=== PATIENT | female | born 1980 | race Caucasian/White ===

== ENCOUNTER 2018-04-04 13:30 | Outpatient (RCR) | payer OTHER, SELFPAY | END 2018-04-25 10:13 | disposition home or self-care (01) | LOC: PT 13:30 | PROVIDERS: Family Provider Obstetrics & Gynecology; PCP Obstetrics & Gynecology; Visit Provider Nurse Practitioner Family | DX: M54.16 Radiculopathy, lumbar region (principal) | CPT/HCPCS: 97033; 97035; 97110; 97163 ==

== ENCOUNTER → 2018-10-31 12:19 | Outpatient (CLI) | payer MEDICAID, SELFPAY ==
--- NOTE | 2018-10-31 12:36 | XR_ITS ---
EXAM: XR lumbar spine 2-3V HISTORY: ITS.REASON: LOW BACK PAIN WITH RADICULOPATHY ORDERING PHYSICIAN: Татьяна Villalba PATIENT AGE: 38 years COMPARISON: None FINDINGS: There is minimal lumbar curvature convex left. Normal alignment. No fracture or dislocation. No lytic or blastic change. No significant degenerative change. The disc spaces are preserved. IMPRESSION: No acute finding
== END ==
PROVIDERS: PCP Nurse Practitioner Family; Visit Provider Nurse Practitioner Family
DX: M54.5 Low back pain (principal); M54.16 Radiculopathy, lumbar region
CPT/HCPCS: 72100

== ENCOUNTER → 2019-02-22 12:58 | Outpatient (CLI) | payer MEDICAID, SELFPAY ==
--- NOTE | 2019-02-22 13:19 | XR_ITS ---
XR knee RT 4V HISTORY: ITS.REASON: RT KNEE PAIN, INURY ORDERING PHYSICIAN: Alize Aceves MD PATIENT AGE: 38 years COMPARISON: None FINDINGS: No fracture or dislocation. No lytic or blastic change. Normal mineralization. No significant arthritic changes evident. No other significant findings IMPRESSION: Negative Knee
== END ==
PROVIDERS: PCP Nurse Practitioner Family; Visit Provider Orthopaedic Surgery
DX: M25.561 Pain in right knee (principal)
CPT/HCPCS: 73564

== ENCOUNTER 2019-02-22 14:40 | Outpatient (RCR) | payer MEDICAID, SELFPAY | END 2019-02-22 14:45 | disposition home or self-care (01) | LOC: PT 14:40 | PROVIDERS: Visit Provider Orthopaedic Surgery | DX: M25.561 Pain in right knee (principal) | CPT/HCPCS: 97760 ==

== ENCOUNTER → 2019-03-20 14:16 | Outpatient (CLI) | payer MEDICAID, SELFPAY ==
--- NOTE | 2019-03-20 14:17 | MR_ITS ---
MR knee RT wo con HISTORY: Right knee pain, injury with pain medially ITS.REASON: knee pain ORDERING PHYSICIAN: Alize Aceves MD PATIENT AGE: 38 years Comparison: 02/17/2019 TECHNIQUE: Standard multiplanar multiecho sequences are performed without contrast. FINDINGS: The cruciate ligaments have an unremarkable appearance. There is increased T2 signal in both sides of the medial collateral ligament at its femoral insertion with thickening of the ligament at this level consistent with a grade 2 MCL sprain/partial tear. A complete tear is not felt to be present. The patellar tendon and quadriceps tendon are intact. Small knee joint effusion. No meniscal tear apparent. There is increased T2 signal involving the posterior aspect of the lateral femoral condyle and at the distal metaphyseal region posteriorly and laterally. This does not involve the articular surface and is consistent with a bone bruise. There is also increased T2 signal involving the posterior aspect of the proximal tibia laterally consistent with a bone bruise. No obvious fractures are evident. The patellar cartilage is well preserved. IMPRESSION: 1. Grade 2 MCL sprain/partial tear 2. Bone bruise of the lateral femoral condyle posteriorly and lateral aspect of the proximal tibia posteriorly 3. No evidence of meniscal tear or cruciate ligament tear
== END ==
PROVIDERS: PCP Nurse Practitioner Family; Visit Provider Orthopaedic Surgery
DX: S83.90XA Sprain of unspecified site of unspecified knee, initial encounter (principal)
CPT/HCPCS: 73721

== ENCOUNTER 2019-05-15 09:00 | Outpatient (RCR) | payer MEDICAID, SELFPAY ==
--- NOTE | 2019-03-04 17:20 | HMH.PTOPEV ---
PT Outpatient Evaluation Rehab PT Outpatient Evaluation Start: 03/04/19 16:33 Freq: Status: Active Protocol: Document 03/04/19 16:34 SILVIA (Rec: 03/04/19 17:19 PDESERDUANEX [id number]) Electronically Signed By Alverto Cardenas, PT 03/04/19 16:34 Outpatient Therapy Subjective History Subjective History Pt. is a 38 year old female who presents to outpatient PT for complaints of acute and traumatic R medial/anterior tibiafemoral pain since 02/17/19. Pt. reports falling off of a 4- fuller backwards onto black top and waking up with her RLE bent underneath her. Pt. denies having head pain and symptoms post fall, but reports bruising in BLEs and R knee pain. Recent diagnostic imaging(X-ray) negative for fracture nor bony abnormalities. Pt. reports Surgeon's orders for wearing a knee brace and using bilateral crutches. Pt. reports, I quit using my crutches because I was tired of them. Pt. RTMD 03/13/19. Current medications include Ibuprofen and Citalopram. PMH includes R arthroscopic knee surgery. Chief Complaint Pain,Swelling Symptom Type Sharp,Stabbing Symptoms Relieved By Rest/Positioning,Brace/Support ,OTC Meds Symptoms Aggravated By Standing,Bending/Stooping, Physical Activity,Twisting, Walking,Lifting Prior Functional Limitations None Current Functional Limitations Lifting,Housework,Dressing, Driving,Sleeping,Standing, Squatting,Recreation Activity, Walking,Stairs,Bending/ Stooping Symptom Description Activity Dependent Level of pain today (0-10) 0 Pain scale - at its best (0-10) 0 Pain scale - at its worst (0-10) 10 Hip/Knee Eval Gait Observation General Gait Pattern Observation Antalgic Gait,Wide Based Gait, Decrease Weight Bear (R), Decrease Stride Lngth (L) Assistive Device
== END 2019-05-22 15:19 | disposition home or self-care (01) ==
LOC: PT.CARL 09:00
PROVIDERS: Visit Provider Orthopaedic Surgery
DX: M25.561 Pain in right knee (principal)
CPT/HCPCS: 97010; 97014; 97110; 97116; 97140; 97163; 97164; G0283

== ENCOUNTER → 2020-09-29 08:58 | Outpatient (CLI) | payer MEDICAID, SELFPAY ==
--- NOTE | 2020-09-29 09:05 | MM_ITS ---
PROCEDURE: MM DIG SCREENING MAMM BI W/CAD Referring Doctor: Татьяна Villalba Patient Age:40Y CLINICAL INDICATION: SCREENING 40-year-old. Baseline mammogram. No previous for comparison. No new complaints. No hormones. Negative family history COMPARISON: No exams were available for comparison baseline study TECHNIQUE: Standard CC and MLO images were obtained. R2 CAD reviewed. Bilateral digital breast tomosynthesis included. Additional axillary CC view both breast included FINDINGS: Baseline study with no previous for comparison Areas of dense heterogeneous asymmetric breast tissue bilaterally.. Mammography of decreased sensitivity in these areas of denser breast. I would note that ultrasound can be useful complement mammography in this character breast particular if there is any palpable area Right breast: On today' CC view and cc tomosynthesis views note areas increased density of tissue deep lateral right breast. This for the most part dissipates on the additional axillary CC view and seems to dissipate for the most part MLO view suggesting more likely merely dense benign fibroglandular elements. However I would suggest the patient return for a right breast ultrasound as well as CC spot view of areaA at the deep axillary breast and low-density asymmetric area b noted seen on the medial inferior breast on today's views-. Area B also seems to seems to dissipate on tomosynthesis and more likely overlapping shadow . Other minimal scattered asymmetric areas of density will benefit from ultrasound survey bilaterally as well Left breast. The heterogeneous dense fibroglandular elements at upper outer quadrant most likely account for the patchy pattern here. I see no definitive underlying mass I would suggest performing ultrasound survey of left breast when the patient returns to survey these heterogeneous areas and help to better establish baseline for this patient.. Also suggest full 90 degree view left breast, as well spot MLO spot view also suggested at area labeled X deep upper-outer quadrant on MLO view.. Question initially irregular margins at X but but it is low-density and seems to dissipate on the MLO tomosynthesis and I favor is merely benign fibroglandular elements current available images Ultrasound survey of the both breast when patient returns suggested-since ultrasound is a useful complement an augment to mammography in breast of this character.. IMPRESSION: Areas of moderately dense breast tissue yield focal areas of asymmetry-on today's Baseline Mammogram with no previous for comparison Most likely these reflect heterogeneous asymmetric dense fibroglandular elements in this younger patient However suggest patient return for Ultrasound survey both breast. Ultrasound provides useful augment/complement mammography screening in breast with pattern with heterogeneous dense asymmetric areas tissue as seen here. . Also spot views of the areas highlighted in text may be helpful as well. These additional view hopefully will help better stab wish baseline--hopefully with routine annual follow-up protocol thereafter BI-RAD Category: 0 Need Additional Imaging Evaluation FOLLOW-UP: IMM Follow-up Recommended Bilateral breast ultrasound with spot views both breast. (A letter has been sent to the patient regarding results of the study.) Dictated by: Uli Hinojosa MD 10/05/2020 14:06 Uli Hinojosa MD in [place] 10/05/2020 14:06
== END ==
PROVIDERS: PCP Nurse Practitioner Family; Visit Provider Nurse Practitioner Family
DX: Z12.31 Encounter for screening mammogram for malignant neoplasm of breast (principal)
CPT/HCPCS: 77063; 77067

== ENCOUNTER 2020-10-19 13:19 | Emergency (ER) | payer MEDICAID, SELFPAY ==
[2020-10-19 13:25] VITALS: BP 127/74; PULSE 61; RESP 20; TEMP 36.7; O2SAT 100; BMI 25.8
--- NOTE | 2020-10-19 13:37 | HMH.EDUTC ---
[facility] [place] Impression: Exposure to COVID-19 virus Disposition: Home, Self-Care Condition on Discharge: Good Instructions: DI for COVID-19 (Suspected or Confirmed ), COVID-19 Viral Test, COVID-19: Testing and Tracing, Preventing the Spread of Coronavirus Discharge Instructions Additional Instructions: *Monitor Temp, Over the counter Motrin or Tylenol as directed/as needed Tylenol every 4 hours and Motrin every 6 hours (as long as your family doctor has told you that you can take it) for fever or pain. and straight to ER if unable to lower temp less than 101.0 after medication given Follow up IMMEDIATELY for new or worsening symptoms or no Noticeable improvement over the next 48-72 hours. 911 for difficulty breathing or swallowing You were tested for today for COVID19 your test result should be back in the next 24-48 hours, you may call to the [facility] to see if your test results are back in the next 48 hours [phone] [facility] hours are 9am-9pm You was given a handout with instructions for Self Quarantine and Self isolation for while you wait on test results and what to do if they are positive If you are positive the Health Dept will be contacting you also Referrals: Татьяна Villalba [Primary Care Provider] - As needed Forms: Work/School Release Time of Disposition: 13:37 Medical Decision Making - Sheng Inquiry Pt receiving controlled substance: No Sheng was queried for this patient: No Vital Signs: 10/19/20 13:25 Temperature 98.0 F Temperature Source Oral Pulse Rate [Right Brachial] 61 Respiratory Rate 20 Blood Pressure [Right Arm] 127/74 Blood Pressure Mean [Right Arm] 91 Blood Pressure Source [Right Arm] Automatic Cuff Blood Pressure Position [Right Arm] Sitting 02 Sat by Pulse Oximetry 100 Oxygen Delivery Method Room Air Orders (Tests/Meds): ORDERS Category Date Time Status Covid-19 Nasal PCR Sendout [facility] 10/19/20 13:30 [place] [facility] [place] - General Stated complaint: covid exposed Time Seen by Provider: 10/19/20 13:37 Mode of Arrival: Ambulatory Source of Information: Patient Limitations: No Limitations Description of Symptoms (Recalled from Triage Doc. by RN): PATIENT REQUESTING COVID TEST FOR WORK D/T EXPOSURE 5 DAYS AGO; DENIES SYMPTOMS HEENT Symptoms (Recalled from RN notes): No Resp Symptoms (Recalled from RN notes): No Skin Symptoms (Recalled from RN notes): No MS Symptoms (Recalled from RN notes): No Functional Status (Recalled from RN notes): WNL - History of Present Illness Provider Complaint: Patient states that she was recently around someone that tested positive for COVID states that she was wearing a mask when she was around them but her work requires her to get tested before she can return - Related Data Allergies Allergy/AdvReac Type Severity Reaction Status Date / Time morphine Allergy Verified 04/05/19 09:13 Penicillins Allergy Verified 04/05/19 09:13 - Worker's Comp Is this a Worker's Comp case?: No [facility] History - Hepatitis A Screen Drug use history?: No High risk sexual behaviors?: No History of sexually transmitted infection?: No Currently employed?: No Childcare worker?: No Do you have indoor plumbing?: Yes Do you have electricity?: Yes Attestation statement:: This patient has been screened for Hepatitis A risk factors. I have reviewed the patient's past medical history: Yes - Social History Smoking Status: Never smoker Alcohol Intake: never Occupational Status: other Household Members: spouse, family Family Hx:: No significant family history ROS Obtained: Yes All systems reviewed & no additional complaints, Yes Systems reviewed as appropriate & no additional complaints - Constitutional Constitutional: Reports system reviewed and no additional complaints, except as docu, Denies body ache, Denies chills, Denies fever(s), Denies headache(s) - ENT Ears, Nose, Mouth, and Throat: Reports system reviewed and no additional complaints
[2020-10-19 13:38] VITALS: BP 127/74; PULSE 61; RESP 20; TEMP 36.7; O2SAT 100
[2020-10-20 12:32] LABS: Covid-19 Nasal PCR Sendout P&C NEGATIVE
== END 2020-10-19 13:39 | disposition home or self-care (01) ==
PROVIDERS: Emergency Provider Nurse Practitioner; PCP Nurse Practitioner Family
DX: Z20.828 Contact with and (suspected) exposure to other viral communicable diseases (principal); Z88.0 Allergy status to penicillin; Z88.5 Allergy status to narcotic agent
CPT/HCPCS: 99201; U0004

== ENCOUNTER → 2020-10-19 13:48 | Outpatient (CLI) | payer MEDICAID, SELFPAY ==
--- NOTE | 2020-10-19 13:53 | US_ITS ---
PROCEDURE: MM DIG MAMM BI DX W/CAD Digital Breast Tomosynthesis Included CLINICAL INDICATION: ABN MAMM COMPARISON: MG MM DIG SCREENING MAMM BI W/CAD from 09/29/2020 US US BREAST RT COMPLETE from 10/19/2020 US US BREAST LT COMPLETE from 10/19/2020 TECHNIQUE: Standard CC and MLO images and 3D Tomosynthesis was obtained. R2 CAD reviewed. FINDINGS: Right breast: On the MLO spot view there is a small rounded density in the superior aspect of the breast not duplicated on the 2nd spot view and not identified on the prior rony images possibly due to an overlapping vessel. No other significant anomalies are evident. The areas marked a and B appear to compress out as fibroglandular tissue. Right breast ultrasound: No cystic or solid lesion evident. Left breast: The area of asymmetry in the superior left breast appears to compress out. Left breast ultrasound: No cystic or solid lesions evident. IMPRESSION: No convincing evidence of malignancy. Scattered areas of asymmetry as described above. Recommend six-month mammographic follow-up. BI-RAD Category: 3 Probably Benign Finding Short Term Follow-up FOLLOW-UP: 6M 6Month Follow-up (A letter has been sent to the patient regarding results of the study.) Dictated by: Fransisco Bahena MD 11/05/2020 15:12 Fransisco Bahena MD in [place] 11/05/2020 15:12
== END ==
PROVIDERS: PCP Nurse Practitioner Family; Visit Provider Nurse Practitioner Family
DX: R92.2 Inconclusive mammogram (principal)
CPT/HCPCS: 76641; 77062; 77066; G0279

== ENCOUNTER 2021-01-27 14:09 | Emergency (ER) | payer OTHER, SELFPAY ==
--- NOTE | 2021-01-27 14:21 | XR_ITS ---
PROCEDURE: XR SHOULDER RT MIN 2V CLINICAL INDICATION: PAIN COMPARISON: No exams were available for comparison FINDINGS: No fracture or dislocation. No lytic or blastic change. There is normal mineralization. No periarticular calcifications. The joint spaces are well-preserved. No significant degenerative/arthritic changes. No erosive changes evident. Other findings: The visualized right hemithorax is unremarkable. IMPRESSION: No acute fractures or dislocations. Dictated by: Raquel Epperson 01/27/2021 15:16 Raquel Epperson in [place] 01/27/2021 15:16
[2021-01-27 14:23] VITALS: BP 124/68; PULSE 62; RESP 16; TEMP 36.8; O2SAT 98; BMI 26.6
--- NOTE | 2021-01-27 14:30 | HMH.EDUTC ---
[facility] [place]ression: Shoulder separation Contusion of right shoulder Qualifiers: Encounter type: initial encounter Qualified Code(s): S40.011A - Contusion of right shoulder, initial encounter Disposition: Home, Self-Care Condition on Discharge: Good Instructions: DI for Shoulder Sprain, DI for AC Joint Separation Additional Instructions: Rest the extremity, Elevate the extremity as tolerated while you are resting. Take ibuprofen for pain. I sent in a prescription to your pharmacy. Follow up with Dr. Aceves (orthopedics). Sometimes there can be fractures that don't show up well on the first set of x-rays. So, you should follow up if you continue to have symptoms. I put in a referral but you need to call her office and schedule an appointment. Follow up with your regular doctor. GO TO THE ER FOR ANY WORSENING SYMPTOMS Prescriptions: Ibuprofen [Ibuprofen 600mg Tablet] 600 mg PO Q6HP PRN #30 tab PRN Reason: Mild Pain Transmission Status: Received by [employer] Referrals: Татьяна Villalba [Primary Care Provider] - Alize Aceves MD [Physician] - Forms: Work/School Release Time of Disposition: 15:23 Medical Decision Making - Medical Records Medical records reviewed: No: I reviewed the patient's medical records. - Sheng Inquiry Pt receiving controlled substance: No Vital Signs: 01/27/21 14:23 01/27/21 15:28 Temperature 98.2 F 98.6 F Temperature Source Oral Oral Pulse Rate 60 Pulse Rate [Right] 62 Respiratory Rate 16 16 Blood Pressure 124/68 Blood Pressure [Right Arm] 124/68 Blood Pressure Mean [Right Arm] 86 Blood Pressure Source Automatic Cuff Blood Pressure Source [Right Arm] Automatic Cuff Blood Pressure Position Sitting Blood Pressure Position [Right Arm] Sitting 02 Sat by Pulse Oximetry 98 Oxygen Delivery Method Room Air Room Air - Radiology Data #1 Image(s): Shoulder Image Reviewed: Yes I reviewed the patient's radiology image, Yes I have reviewed radiologist's interpretation Preliminary Findings: No Fracture Seen PROCEDURE: XR SHOULDER RT MIN 2V CLINICAL INDICATION: PAIN COMPARISON: No exams were available for comparison FINDINGS: No fracture or dislocation. No lytic or blastic change. There is normal mineralization. No periarticular calcifications. The joint spaces are well-preserved. No significant degenerative/arthritic changes. No erosive changes evident. Other findings: The visualized right hemithorax is unremarkable. IMPRESSION: No acute fractures or dislocations. Dictated by: Raquel Epperson 01/27/2021 15:16 [place] [facility] [place] - General Stated complaint: [id number] right shoulder pain,home accident Time Seen by Provider: 01/27/21 14:30 Mode of Arrival: Ambulatory Source of Information: Patient Limitations: No Limitations Description of Symptoms (Recalled from Triage Doc. by RN): pt c/o right shoulder pain since last night HEENT Symptoms (Recalled from RN notes): No Resp Symptoms (Recalled from RN notes): No Skin Symptoms (Recalled from RN notes): No MS Symptoms (Recalled from RN notes): Yes (shoulder pain) Functional Status (Recalled from RN notes): na - History of Present Illness Provider Complaint: She states that she tripped over her dog while getting out of bed this morning and came down on her left shoulder. She has had left shoulder pain since then. - Related Data Previous Rx's Medication Instructions Recorded Ibuprofen [Ibuprofen 600mg 600 mg PO Q6HP PRN #30 tab 01/27/21 Tablet] Allergies Allergy/AdvReac Type Severity Reaction Status Date / Time morphine Allergy Verified 04/05/19 09:13 Penicillins Allergy Verified 04/05/19 09:13 - Worker's Comp Is this a Worker's Comp case?: No [facility] History - Hepatitis A Screen Drug use history?: No High risk sexual behaviors?: No History of sexually transmitted infection?: No Currently employed?: No Childc
[2021-01-27 15:28] VITALS: BP 124/68; PULSE 60; RESP 16; TEMP 37; O2SAT 98
== END 2021-01-27 15:29 | disposition home or self-care (01) ==
PROVIDERS: Emergency Provider Nurse Practitioner Family; PCP Nurse Practitioner Family
DX: S43.004A Unspecified dislocation of right shoulder joint, initial encounter (principal); W01.0XXA Fall on same level from slipping, tripping and stumbling without subsequent striking against object, initial encounter; Y92.013 Bedroom of single-family (private) house as the place of occurrence of the external cause; Z88.0 Allergy status to penicillin; Z88.5 Allergy status to narcotic agent
CPT/HCPCS: 73030; 99202; G0463

== ENCOUNTER → 2021-05-12 10:14 | Outpatient (CLI) | payer SELFPAY ==
--- NOTE | 2021-05-12 | US_ITS ---
APPROVED REPORT Exam Type: Lower Extremity Segmental Pressures Facility Planner: RICHARD Elizondo Claudication: Bilaterally Limb Pain: Bilateral Rest Pain: Bilaterally Numbness/Tingling Edema Risk Factors Hyperlipidemia Diabetes Pressures/Indices Right Indices Left Indices Brachial 120.00 mmHg Brachial 128.00 mmHg Low Thigh 146.00 mmHg 1.14 Low Thigh 145.00 mmHg 1.13 Calf 157.00 mmHg 1.23 Calf 155.00 mmHg 1.21 Ankle(PT) 160.00 mmHg 1.25 Ankle(PT) 154.00 mmHg 1.20 Ankle(DP) 155.00 mmHg 1.21 Ankle(DP) 148.00 mmHg 1.16 Digit 88.00 mmHg 0.69 Digit 122.00 mmHg 0.95 Findings Pulses and waveforms within normal limits at all levels bilaterally. RT JAYDON: 1.25 RT TBI: 0.69 LT JAYDON: 1.20 LT TBI: 0.95 Conclusion Pulses and waveforms within normal limits at all levels bilaterally. RT JAYDON: 1.25 RT TBI: 0.69 LT JAYODN: 1.20 LT TBI: 0.95 Normal appearing resting noninvasive lower extremity arterial study. Electronically signed by : Fransisco Bahena MD 05/12/2021 15:56:32
== END ==
PROVIDERS: PCP Nurse Practitioner Family; Visit Provider Nurse Practitioner
DX: R60.9 Edema, unspecified (principal)
CPT/HCPCS: 93923

== ENCOUNTER → 2021-06-14 13:44 | Outpatient (CLI) | payer OTHER, SELFPAY ==
--- NOTE | 2021-06-14 13:52 | MM_ITS ---
PROCEDURE: MM DIG MAMM BI DX W/CAD Digital Breast Tomosynthesis Included CLINICAL INDICATION: ABN MAMM Follow-up abnormal mammogram. COMPARISON: MG MM DIG SCREENING MAMM BI W/CAD from 09/29/2020 MG MM DIG MAMM BI DX W/CAD from 10/19/2020 TECHNIQUE: Standard CC and MLO images and 3D Tomosynthesis was obtained. R2 CAD reviewed. FINDINGS: Heterogeneously dense fibroglandular tissue which decreases the sensitivity of mammography. No suspicious appearing mass, malignant-appearing microcalcification, architectural distortion, or skin thickening. No change with no evidence of malignancy. IMPRESSION: Negative. BI-RAD Category: 1 Negative FOLLOW-UP: 1 YR 1 Year Follow-up (A letter has been sent to the patient regarding results of the study.) Dictated by: Fransisco Bahena MD 06/17/2021 09:56 Fransisco Bahena MD in [place] 06/17/2021 09:56
== END ==
PROVIDERS: PCP Nurse Practitioner Family; Visit Provider Nurse Practitioner Family
DX: R92.2 Inconclusive mammogram (principal)
CPT/HCPCS: 77062; 77066; G0279

== ENCOUNTER 2021-11-23 19:31 | Emergency (ER) | payer OTHER, SELFPAY ==
[2021-11-23 19:35] VITALS: BP 141/86; PULSE 71; RESP 18; TEMP 37; O2SAT 100; BMI 25.5
--- NOTE | 2021-11-23 20:28 | HMH.EDUTC ---
[facility] [place] Clinical Impression: Sinusitis Qualifiers: Sinusitis location: unspecified location Chronicity: acute Recurrence: non-recurrent Qualified Code(s): J01.90 - Acute sinusitis, unspecified Disposition: Home, Self-Care Condition on Discharge: Good Instructions: DI for Sinusitis Additional Instructions: Drink plenty of fluids. Take tylenol or ibuprofen for pain or fever. Take the medications as directed. Follow up with your regular doctor. GO TO THE ER FOR ANY WORSENING SYMPTOMS Prescriptions: Benzonatate [Benzonatate 100mg cap] 100 mg PO TIDP PRN #30 cap PRN Reason: Cough Transmission Status: Pending to [facility] [employer] guaiFENesin [Mucinex 600mg tablet] 1 - 2 tab PO BIDP PRN #30 tab PRN Reason: Congestion Transmission Status: Pending to [facility] [employer] Azithromycin [Z-James 250mg Tab*] 250 mg PO UD DOSE PK #6 tab Transmission Status: Pending to [employer] Referrals: Татьяна Villalba [Primary Care Provider] - Time of Disposition: 20:30 Medical Decision Making - Medical Records Medical records reviewed: No: I reviewed the patient's medical records. - Sheng Inquiry Pt receiving controlled substance: No Vital Signs: 11/23/21 19:35 Temperature 98.6 F Temperature Source Oral Pulse Rate [Right Brachial] 71 Respiratory Rate 18 Blood Pressure [Right Arm] 141/86 H Blood Pressure Mean [Right Arm] 104 Blood Pressure Source [Right Arm] Automatic Cuff Blood Pressure Position [Right Arm] Sitting 02 Sat by Pulse Oximetry 100 Oxygen Delivery Method Room Air [facility] [place] HPI - General Stated complaint: sinus infection Time Seen by Provider: 11/23/21 20:28 Mode of Arrival: Ambulatory Source of Information: Patient Limitations: No Limitations Description of Symptoms (Recalled from Triage Doc. by RN): PATIENT C/O COUGH AND RUNNY NOSE X 3 DAYS HEENT Symptoms (Recalled from RN notes): Yes Resp Symptoms (Recalled from RN notes): Yes Skin Symptoms (Recalled from RN notes): No MS Symptoms (Recalled from RN notes): No Functional Status (Recalled from RN notes): WNL - History of Present Illness Provider Complaint: She c/o sore throat, sinus congestion, headache, and a runny nose for the past 3 days. She has had chills but no documented fever. She refuses a covid-19 test. - Related Data Home Medications Medication Instructions Recorded Confirmed buspirone 10 mg tablet 10 mg PO BID 02/01/21 02/01/21 citalopram 10 mg tablet 10 mg PO DAILY 02/01/21 02/01/21 Previous Rx's Medication Instructions Recorded Ibuprofen [Ibuprofen 600mg 600 mg PO Q6HP PRN #30 tab 01/27/21 Tablet] Azithromycin [Z-James 250mg Tab*] 250 mg PO UD DOSE PK #6 tab 11/23/21 Benzonatate [Benzonatate 100mg 100 mg PO TIDP PRN #30 cap 11/23/21 cap] guaiFENesin [Mucinex 600mg tablet] 1 - 2 tab PO BIDP PRN #30 tab 11/23/21 Allergies Allergy/AdvReac Type Severity Reaction Status Date / Time morphine Allergy Verified 02/01/21 09:23 Penicillins Allergy Verified 02/01/21 09:23 - Worker's Comp Is this a Worker's Comp case?: No [facility] History - Hepatitis A Screen Drug use history?: No High risk sexual behaviors?: No History of sexually transmitted infection?: No Currently employed?: No Childcare worker?: No Do you have indoor plumbing?: Yes Do you have electricity?: Yes Attestation statement:: This patient has been screened for Hepatitis A risk factors. I have reviewed the patient's past medical history: Yes Medical History: Reports:: Anxiety Amputation: No - Social History Smoking Status: Never smoker Alcohol Intake: never Occupational Status: employed Household Members: spouse, family - Psychiatric History Pschychiatric History:: Reports:: Anxiety Family Hx:: No significant family history ROS Obtained: Yes All systems reviewed & no additional complaints - Constitutional Constitutional: Denies body ache, Reports chills, Denies fever(s), Reports poor appetite, Reports
[2021-11-23 20:33] VITALS: BP 141/86; PULSE 71; RESP 18; TEMP 37; O2SAT 100
== END 2021-11-23 20:35 | disposition home or self-care (01) ==
PROVIDERS: Emergency Provider Nurse Practitioner Family; PCP Nurse Practitioner Family
DX: J01.90 Acute sinusitis, unspecified (principal)
CPT/HCPCS: 99202; G0463

== ENCOUNTER 2022-04-09 09:42 | Emergency (ER) | payer OTHER, SELFPAY ==
[2022-04-09 10:05] VITALS: BP 116/58; PULSE 84; RESP 21; TEMP 36.8; O2SAT 97; BMI 26.3
[2022-04-09 10:26] LABS: Strep Scrn Group A (Rapid) Positive (Negative)
--- NOTE | 2022-04-09 10:35 | HMH.EDUTC ---
[facility] [place] Disposition Clinical Impression: Strep throat Disposition: Home, Self-Care Condition on Discharge: Good Instructions: Strep Throat, DI for Strep Throat Additional Instructions: *Monitor Temp, Over the counter Motrin or Tylenol as directed/as needed Tylenol every 4 hours and Motrin every 6 hours (as long as your family doctor has told you that you can take it) for fever or pain. and straight to ER if unable to lower temp less than 101.0 after medication given *Warm salt water gargles may help to soothe the throat *Throat Lozenges *Warm fluids like tea with honey may help to soothe the throat *Sleep elevated *Humidifier/Vaporizer *If you did not take Penicillin shot or was unable to, start taking antibiotic immediately and make sure that you take it for the FULL length of time although you should start to feel better in 24-48 hours *change toothbrush and toothpaste 24-48 hours after starting to take antibiotics so you do not reinfect yourself Monitor Temp. Tylenol and/or Ibuprofen as needed. ER if fever is no less than 101 despite alternating Tylenol and Ibuprofen * Encourage fluids, water, Gatorade, powerade, pedialyte if infant/toddler/or child *Cold fluids, popsicles and ice cream may feel good on his throat Follow up IMMEDIATELY for new or worsening symptoms or no Noticeable improvement over the next 48-72 hours. 911 for difficulty breathing or swallowing Prescriptions: Azithromycin [Z-James 250mg Tab] 250 mg PO DIRECTED #6 tab Transmission Status: Received by [employer] Referrals: Татьяна Villalba [Primary Care Provider] - As needed Time of Disposition: 10:49 Medical Decision Making - Sheng Inquiry Pt receiving controlled substance: No Sheng was queried for this patient: No Vital Signs: 04/09/22 10:05 04/09/22 10:49 Temperature 98.3 F 98.3 F Temperature Source Oral Pulse Rate 84 Pulse Rate [Right Brachial] 84 Respiratory Rate 21 21 Blood Pressure 116/58 L Blood Pressure [Right Arm] 116/58 L Blood Pressure Mean [Right Arm] 77 Blood Pressure Source [Right Arm] Automatic Cuff Blood Pressure Position [Right Arm] Sitting 02 Sat by Pulse Oximetry 97 Oxygen Delivery Method Room Air - Lab Data Lab results reviewed: Yes: I reviewed the patient's lab results. Lab Results 04/09/22 10:10: Group A Strep Rapid Positive A Orders (Tests/Meds): ED MEDICATIONS Discontinued Medications Generic Name Dose Route Start Last Admin Trade Name Jose PRN Reason Stop Dose Admin Methylprednisolone Sodium Succinate 125 mg 04/09/22 10:42 04/09/22 10:45 Methylprednisolone Sod Succ 125mg Vial IM 04/09/22 10:43 125 mg ONCE ONE Administration Medical Decision Narrative: Patient states that she has taken azithromycin and soluMedrol in the past [facility] [place] HPI - General Stated complaint: sore throat, cough Time Seen by Provider: 04/09/22 10:35 Mode of Arrival: Ambulatory Source of Information: Patient Limitations: No Limitations Description of Symptoms (Recalled from Triage Doc. by RN): PATIENT C/O SORE THROAT X 3 DAYS HEENT Symptoms (Recalled from RN notes): Yes Resp Symptoms (Recalled from RN notes): No Skin Symptoms (Recalled from RN notes): No MS Symptoms (Recalled from RN notes): No Functional Status (Recalled from RN notes): WNL - History of Present Illness Provider Complaint: Patient states that son recently had strep throat and now she thinks she may have it States that she has been having sore throat and swelling in her throat and hurts when she swallows so she came in to get checked - Related Data Home Medications Medication Instructions Recorded Confirmed citalopram 10 mg tablet 10 mg PO DAILY 02/01/21 04/09/22 Previous Rx's Medication Instructions Recorded Azithromycin [Z-James 250mg Tab] 250 mg PO DIRECTED #6 tab 04/09/22 Allergies Allergy/AdvReac Type Severity Reaction Status Date / Time morphine Allergy Verified 02/01/21 09:23 Penic
[2022-04-09 10:49] VITALS: BP 116/58; PULSE 84; RESP 21; TEMP 36.8; O2SAT 97
== END 2022-04-09 11:10 | disposition home or self-care (01) ==
PROVIDERS: Emergency Provider Nurse Practitioner; PCP Nurse Practitioner Family
DX: J02.0 Streptococcal pharyngitis (principal); B95.0 Streptococcus, group A, as the cause of diseases classified elsewhere; F41.9 Anxiety disorder, unspecified; Z88.0 Allergy status to penicillin; Z88.5 Allergy status to narcotic agent
CPT/HCPCS: 87430; 99213; G0463

== ENCOUNTER → 2022-06-24 08:40 | Outpatient (CLI) | payer OTHER, SELFPAY ==
--- NOTE | 2022-06-24 08:59 | XR_ITS ---
FINAL REPORT CLINICAL HISTORY: FOOT PAIN, PLANTAR FASCIAL FIBROMATOSIS FINDINGS: LEFT FOOT Three views of the left foot demonstrate no acute fracture or dislocation. The visualized joint spaces are normally aligned. The soft tissues are unremarkable. IMPRESSION: No acute bony abnormality. Reviewed, Interpreted and Dictated by Darian Tavares MD Transcribed by Kadi Juarez Authenticated and [facility]
--- NOTE | 2022-06-24 08:59 | XR_ITS ---
FINAL REPORT CLINICAL HISTORY: PLANTAR FASCIAL FIBROMATOSIS, FOOT PAIN FINDINGS: RIGHT FOOT Three views of the right foot demonstrate no acute fracture or dislocation. The visualized joint spaces are normally aligned. The soft tissues are unremarkable. IMPRESSION: No acute bony abnormality. Reviewed, Interpreted and Dictated by Darian Tavares MD Transcribed by Kadi Juarez Authenticated and [facility]
[2022-06-24 10:55] LABS: 25-OH Vitamin D, Total 49.2 ng/mL (30-100)
[2022-06-24 11:15] LABS: Alanine Aminotransferase 15 U/L (12-78); Albumin Level 3.9 g/dl (3.5-5.0); Albumin/Globulin Ratio 1.3 (1.1-1.8); Alkaline Phosphatase 72 U/L (38-126); Anion Gap 9.5 mEq/L (5-15); Aspartate Amino Transferase 27 U/L (14-36); Bilirubin,Total 0.2 mg/dl (0.2-1.3); Blood Urea Nitrogen 6 mg/dl (7-17); Calcium 8.6 mg/dl (8.4-10.2); Carbon Dioxide 30 mmol/L (22.0-30.0); Chloride 104 mmol/L (98-107); Chol/HDL Ratio 5.7 (1-3.5); Cholesterol 257 mg/dl (140-200); Estimated Glomerular Filt Rate 110 ml/min (>60); GFR (African American) 133 ML/MIN (>60); Glucose 88 mg/dl (74-100); HDL Cholesterol 45 mg/dl (40-60); Potassium 4.5 mmoL/L (3.5-5.1); Sodium 139 mmol/L (136-145); Total Protein,Serum 6.9 g/dl (6.3-8.2); Triglycerides 120 mg/dl (30-150); VLDL Cholesterol 24 mg/dL (0-40)
[2022-06-24 11:45] LABS: Thyroid Stimulating Hormone 1.32 uIU/mL (0.465-4.68)
[2022-06-25 08:34] LABS: Direct LDL Cholesterol 183 mg/dL (100-129)
== END ==
PROVIDERS: PCP Nurse Practitioner Family; Visit Provider Nurse Practitioner Family
DX: M72.2 Plantar fascial fibromatosis (principal); E78.2 Mixed hyperlipidemia
CPT/HCPCS: 36415; 73630; 80053; 80061; 82306; 84443

== ENCOUNTER → 2022-11-24 12:18 | Outpatient (CLI) | payer OTHER, SELFPAY ==
--- NOTE | 2022-11-24 12:33 | MM_ITS ---
PROCEDURE INFORMATION: Exam: MG Bilateral Screening 3D Mammography Exam date and time: 11/24/2022 12:52 PM Age: 42 years old Clinical indication: Screening. No family history of breast cancer. TECHNIQUE: Imaging protocol: Bilateral Screening tomosynthesis and 2D mammography including computer-aided detection (CAD) when performed. COMPARISON: 1. MG MM DIG MAMM BI DX W/CAD 06/14/2021 2:02 PM 2. MG MM DIG MAMM BI DX W/CAD 10/19/2020 2:05 PM 3. MG MM DIG SCREENING MAMM BI W/CAD 09/29/2020 9:24 AM 4. US BREAST RT COMPLETE 10/19/2020 2:37 PM FINDINGS: MAMMOGRAPHY: Breast composition: The breasts are heterogeneously dense, which may obscure small masses. Mass: None. Architectural distortion: None. Calcifications: No suspicious calcifications. Asymmetric density: None. Skin thickening: None. Axillary adenopathy: None. IMPRESSION: No mammographic evidence of malignancy. Annual screening is recommended unless otherwise clinically indicated. ASSESSMENT: BI-RADS Category 1: Negative
== END ==
PROVIDERS: PCP Nurse Practitioner Family; Visit Provider Nurse Practitioner Family
DX: Z12.31 Encounter for screening mammogram for malignant neoplasm of breast (principal)
CPT/HCPCS: 77063; 77067

== ENCOUNTER 2024-01-21 10:33 | Emergency (ER) | payer OTHER, SELFPAY ==
--- NOTE | 2024-01-21 10:37 | XR_ITS ---
PROCEDURE INFORMATION: Exam: XR Right Knee Exam date and time: 01/21/2024 10:36 AM Age: 43 years old Clinical indication: Pain; Knee; Right TECHNIQUE: Imaging protocol: Radiologic exam of the right knee. Views: 3 views. COMPARISON: FINDINGS: Bones/joints: Osseous structures are intact. No fracture or malalignment. Joint surfaces are preserved. Soft tissues: Linear shaped area of calcification superior aspect medial gutter near the insertion site of the MCL probably representing some dystrophic calcification from old MCL injury. No significant joint effusion. IMPRESSION: 1. No acute bony abnormalities. 2. Evidence of old MCL injury.
[2024-01-21 10:40] VITALS: BP 121/74; PULSE 60; RESP 18; TEMP 36.8; O2SAT 99; BMI 30.4
--- NOTE | 2024-01-21 10:45 | ED_ITS ---
Discharge Plan Disposition Patient Disposition: Home, Self-Care Condition: Good Prescriptions Prescriptions: New ibuprofen [IBU] 800 mg tablet 800 mg PO Q8HP PRN (Reason: Moderate Pain) Qty: 30 0RF No Action citalopram 10 mg tablet 10 mg PO DAILY buspirone 5 mg tablet 10 mg PO BID meloxicam 7.5 mg tablet 7.5 mg PO DAILY PRN (Reason: b/l feet pain) 30 Days Qty: 30 2RF norgestimate-ethinyl estradiol [Sprintec (28)] 0.25-35 mg-mcg tablet 1 tab PO DAILY Patient Comments: TAKE 1 TABLET 1 TIME EACH DAY ergocalciferol (vitamin D2) [Vitamin D2] 1,250 mcg (50,000 unit) capsule See Rx Instructions .ROUTE .COMPLEX Patient Comments: TAKE 1 CAPSULE 1 TIME EACH WEEK DIRECTED Rx Instructions: TAKE 1 CAPSULE 1 TIME EACH WEEK DIRECTED Referrals Follow up/Referrals: Caden Zhang MD [Primary Care Provider] - See instructions Activity Restrictions/Add. Instructions Additional Instructions/Restrictions: Rest the extremity, Elevate the extremity as tolerated while you are resting. Take ibuprofen for pain. I sent in a prescription to your pharmacy. Follow up with orthopedics as you are already scheduled to do. Follow up with your regular doctor. GO TO THE ER FOR ANY WORSENING SYMPTOMS Clinical Impressions Clinical Impression: Right knee sprain Stand Alone Forms Stand Alone Forms: Work/School Release Instructions Patient Instructions: Knee Sprain, DI for Knee Sprain, How to Use a Knee Immobilizer Discharge ED Provider: Pritesh Bowers [facility] General Stated complaint: AO right knee pain Time Seen by Provider: 01/21/24 10:45 History of Present Illness Provider Complaint: She states that she twisted her right knee around 4 days ago. She states that since then she has had pain and swelling of the knee. Her pain is worse when she is walking or bearing weight on the knee. Related Data Home Medications Medication Instructions Recorded Confirmed citalopram 10 mg tablet 10 mg PO DAILY . 02/01/21 01/21/24 buspirone 5 mg tablet 10 mg PO BID 06/29/22 01/21/24 ergocalciferol (vitamin D2) 1,250 See Rx Instructions .Route .COMPLEX 01/21/24 01/21/24 mcg (50,000 unit) capsule (Vitamin D2) norgestimate 0.25 mg-ethinyl 1 tab PO DAILY 01/21/24 01/21/24 estradiol 35 mcg tablet (Sprintec (28)) Previous Rx's Medication Instructions Recorded meloxicam 7.5 mg tablet 7.5 mg PO DAILY PRN b/l feet pain 07/01/22 30 days #30 tabs ibuprofen 800 mg tablet (IBU) 800 mg PO Q8HP PRN Moderate Pain 01/21/24 #30 tabs Allergies Allergy/AdvReac Type Severity Reaction Status Date / Time morphine Allergy Verified 01/21/24 10:49 Penicillins Allergy Verified 01/21/24 10:49 [facility] Disclaimer: The information contained in this section may have been updated after the patient was seen, as this information can be updated by other users. Social History Smoking Status: Never smoker alcohol intake: never current occupational status: other Travel in the last 8 weeks: None household members: spouse and family ROS Obtained: Yes All systems reviewed & no additional complaints except as documented Constitutional Constitutional: Denies chills and Denies fever(s) Eyes Eyes: Denies eye discharge ENT Ears, Nose, Mouth, and Throat: Denies dizziness, Denies otalgia and Denies sore throat Cardiovascular Cardiovascular: Denies chest pain Respiratory Respiratory: Denies shortness of breath, Denies chest congestion, Denies cough, Denies stridor and Denies wheezing Gastrointestinal Gastrointestingal: Denies nausea or vomiting Musculoskeletal Musculoskeletal: Reports as per HPI Integumentary/Breasts Skin/Breast: Denies rash Neurologic Neurologic: Denies dizziness and Denies paresthesias Allergic/Immunologic Allergic/Immunologic: Denies wheezing Physical Exam General General appearance: alert and in no apparent distress Head Head exam: atraumatic, normocephalic and normal inspection Eye Eye exam: Present normal appearance, PERRL and EOMI ENT ENT exam: Present normal exam, normal oropharynx, mucous membranes moist, TM's normal bilaterally and normal external ear exam Neck Neck exam: Present normal inspection, full ROM and trachea midline; Absent meningismus or lymphadenopathy Chest Chest inspection: Present normal inspection and symmetric chest wall rise; Absent tenderness Respiratory Respiratory exam: Present normal lung sounds bilaterally; Absent respiratory distress Cardiovascular Cardiovascular exam: Present regular rate and normal rhythm; Absent JVD Abdominal Exam Abdominal exam: Present soft and normal bowel sounds; Absent distention, tenderness or guarding Extremities Exam Extremities exam: Present normal capillary refill; Absent calf tenderness Expanded Lower Extremity Exam Right: Hip/Pelvis exam: Present normal inspection and full ROM; Absent tenderness Upper leg exam: Present normal inspection and full ROM; Absent tenderness Knee exam: Present full ROM, tenderness, swelling and knee extension intact; Absent abrasion, laceration, ecchymosis, deformity, crepitus, dislocation, erythema, effusion, anterior drawer sign, posterior draw sign, pain with valgus, laxity with valgus, pain with varus or laxity with varus Lower leg exam: Present normal inspection, full ROM and Achilles tendon intact; Absent tenderness or Homans' sign Ankle exam: Present normal inspection and full ROM; Absent tenderness Foot/toe exam: Present normal inspection and full ROM; Absent tenderness Neurovascular/Tendon exam: Present normal capillary refill and normal 2- point discrimination; Absent pulse deficit, motor deficit, sensory deficit, tendon deficit, extremity cold to touch or pallor Gait: observed and normal Back Exam Back exam: Present normal inspection; Absent tenderness Neurological Exam Neurological exam: Present alert and oriented X3 Psychiatric Psychiatric exam: Present normal affect and normal mood Skin Skin exam: Present warm, dry, intact and normal color Lymphatic Lymphatic Findings: no adenopathy Medical Decision Making Medical Records Medical records reviewed: No I reviewed the patient's medical records. Sheng Inquiry Pt receiving controlled substance: No Orders (Tests/Meds): ORDERS Category Date Time Status Knee XR right 3 views [XR knee RT 3V] Stat Exams 01/21/24 10:37 Ordered Radiology Data #1: Image(s): Knee Image Reviewed: Yes I reviewed the patient's radiology image and Yes I have reviewed radiologist's interpretation Preliminary Findings: No Fracture Seen PROCEDURE INFORMATION: Exam: XR Right Knee Exam date and time: 01/21/2024 10:36 AM Age: 43 years old Clinical indication: Pain; Knee; Right TECHNIQUE: Imaging protocol: Radiologic exam of the right knee. Views: 3 views. COMPARISON: MR KNEE^ROUTINE 03/20/2019 2:50 PM FINDINGS: Bones/joints: Osseous structures are intact. No fracture or malalignment. Joint surfaces are preserved. Soft tissues: Linear shaped area of calcification superior aspect medial gutter near the insertion site of the MCL probably representing some dystrophic calcification from old MCL injury. No significant joint effusion. IMPRESSION: 1. No acute bony abnormalities. 2. Evidence of old MCL injury. Procedures Risk/Benefits of Procedure(s) Were Explained: Yes Orthopedic Splinting/Casting Injury #1: Side: right Lower Extremity Immobilizer: knee immobilizer and applied by nurse/dr gong Post Cast/Splinting Neuro Status: intact and no change Post Cast/Splinting Vasc Status: intact and no change
[2024-01-21 11:50] VITALS: BP 121/74; PULSE 60; RESP 18; TEMP -7.7; TEMP 18; O2SAT 99
== END 2024-01-21 11:49 | disposition home or self-care (01) ==
PROVIDERS: Emergency Provider Nurse Practitioner Family; PCP Family Medicine
DX: S83.91XA Sprain of unspecified site of right knee, initial encounter (principal); M25.561 Pain in right knee; X50.1XXA Overexertion from prolonged static or awkward postures, initial encounter
CPT/HCPCS: 73562; 99212; 99214; G0463

== ENCOUNTER 2024-08-22 08:00 | Outpatient (RCR) | payer OTHER, SELFPAY | END 2024-09-10 16:17 | disposition home or self-care (01) | LOC: PT 08:00 | PROVIDERS: Visit Provider Orthopaedic Surgery Adult Reconstructive Orthopaedic Surgery | DX: M25.561 Pain in right knee (principal); Z98.890 Other specified postprocedural states | CPT/HCPCS: 97014; 97110; 97163; 97530; G0283 ==